=== PATIENT | male | born 1945 | race Caucasian/White ===

== ENCOUNTER 2017-03-25 13:29 | Emergency (ER) | payer OTHER ==
[2016-06-11 09:59] VITALS: BMI 30.5
[~2017-03-25 13:29] MED LIST: ACETAMINOPHEN325 MG PO; BAYER CHEWABLE81 MG PO; BUSPAR10 MG PO; CARAFATE1 G PO; CLARITIN 10 MG10 MG PO; FUROSEMIDE20 MG PO; GAS-X80 MG PO; K-TAB10 MEQ PO; MIRALAX17 GM PO; NATURAL SENNA8.6 MG PO; NORVASC5 MG PO; OMEPRAZOLE20 M1 PO; PROVENTIL/2.5 MG/3 M INH; SENNA PLUS TA1 UDTAB PO; SPIRIVA RESPIMAT4 G1 INH; SPIRIVA18 MCG INH; SYMBICORT 16010.2 GM INH; TRAZODONE HCL50 MG PO; VITAMIN B-12500 MC1 PO; ZITHROMAX250 MG PO; ZOFRAN4 MG PO; ZOLOFT50 MG PO
[2017-03-25 15:13] LABS: BASOPHILS 0.1 % (0-2); EOSINOPHILS 0.6 % (0-7); HEMATOCRIT 42.9 % (42.0-54.0); HEMOGLOBIN 14.2 g/dL (13.5-17.5); IMMATURE GRANULOCYTES 0.2 % (0-5); LYMPHOCYTES 10.8 % (15-50); MCH 29.4 pg (26.0-34.0); MCHC 33.1 g/dL (31.0-37.0); MCV 88.8 fL (80.0-100.0); MEAN PLATELET VOLUME 9.8 fL (7.4-10.4); MONOCYTES 5.4 % (2-11); NEUTROPHILS 82.9 % (40-80); PLATELET COUNT 220 10x3/uL (130-400); RBC 4.83 10x6/uL (4.20-6.10); RDW 14.4 % (11.5-14.5); WBC 9.7 10x3/uL (4.8-10.8)
[2017-03-25 15:35] LABS: ALBUMIN 3.5 g/dL (3.4-5.0); ALKALINE PHOSPHATASE 94 U/L (46-116); ALT (SGPT) 18 U/L (10-68); CALC OSMOLALITY 282 mosm/kg (275-300); CALCIUM 8.6 mg/dL (8.5-10.1); CARBON DIOXIDE 32.7 mmol/L (21.0-32.0); CHLORIDE - SERUM 101 mmol/L (98-107); CREATININE - SERUM 0.9 mg/dL (0.6-1.3); GLUCOSE 130 mg/dL (74-106); POTASSIUM - SERUM 3.2 mmol/L (3.5-5.1); PROTEIN - SERUM 7.3 g/dL (6.4-8.2); SODIUM 141 mmol/L (136-145); UREA NITROGEN 12 mg/dL (7-18); eGFR NON AFRICAN AMERICAN 88 mL/min (90-120)
[2017-03-25 15:54] LABS: APPEARANCE CLEAR (CLEAR); COLOR DK YELLOW (YELLOW); LEUKOCYTE ESTERASE NEGATIVE (NEGATIVE); NITRITE NEGATIVE (NEGATIVE); PROTEIN NEGATIVE (NEGATIVE); SPECIFIC GRAVITY 1.015 (1.005-1.020)
[2017-03-25 15:55] LABS: BILIRUBIN NEGATIVE (NEGATIVE); GLUCOSE 50 mg/dL (NEGATIVE); KETONE NEGATIVE (NEGATIVE); UROBILINOGEN NORMAL (NORMAL)
== END 2017-03-25 19:39 | disposition short-term general hospital (02) ==
LOC: D.ER 13:29
PROVIDERS: Emergency Medicine
DX: J15.9 Unspecified bacterial pneumonia (principal); R09.89 Other specified symptoms and signs involving the circulatory and respiratory systems; E87.6 Hypokalemia; J44.9 Chronic obstructive pulmonary disease, unspecified; I10 Essential (primary) hypertension; I44.7 Left bundle-branch block, unspecified